=== PATIENT | female | born 1940 | race Caucasian/White ===

== ENCOUNTER 2016-12-16 10:02 | Day surgery (SDC) | payer BC ==
[2016-12-06 10:15] VITALS: BMI 22.9
--- NOTE | 2016-12-16 08:03 | HP ---
History & Physical Update - History History: No Change - Physical Physical: No Change - Assessment Assessment: No Change - Plan Plan: No Change
[~2016-12-16 10:02] MED LIST: CEFAZOLIN 1 GM in DEXTROSE 5%-WATER - 100 ML IVPB ONE; GABAPENTIN 300 MG CAPSULE (FP) PO ONE; oxyCODONE HCL 10 MG SUSTAINED ACTING TABLET PO STA
[2016-12-16] MEDS ORDERED: ROCURONIUM BROMIDE 50 MG/5 ML VIAL ONE (10:13)
[2016-12-16] MEDS ORDERED: PROPOFOL 20 ML ONE (10:13)
[2016-12-16] MEDS ORDERED: MIDAZOLAM HCL 2 MG/2 ML SINGLE DOSE VIAL ONE (10:13)
[2016-12-16] MEDS ORDERED: GUM MASTIC/STORAX/MSAL/ALCOHOL 1 DRP DROPSBTL MC ONE (11:26)
[2016-12-16] MEDS ORDERED: methylPREDNISolone ACET (DEPO) 40 MG/1 ML VIAL ONE (11:26)
[2016-12-16] MEDS ORDERED: LIDOCAINE 1%/EPI 1:100000 (20 ML MULTI DOSE VIAL) ONE ×2 (11:26→11:47)
[2016-12-16] MEDS ORDERED: BUPIVACAINE HCL/PF 2.5 MG/ML - 30 ML VIAL IJ ONE (11:26)
[2016-12-16] MEDS ORDERED: ePHEDrine SULFATE 50 MG/1 ML AMPULE ONE (12:01)
[2016-12-16] MEDS ORDERED: LIDOCAINE 1%/EPI 1:100000 (50 ML MULTI DOSE VIAL) INF ONE (12:20)
[2016-12-16] MEDS ORDERED: oxyCODONE HCL 5 MG TABLET PO PRN ×3 (14:21→14:27)
[2016-12-16] MEDS ORDERED: ONDANSETRON 4 MG/2 ML VIAL IVPUSH PRN ×2 (14:21→15:32)
--- NOTE | 2016-12-16 14:23 | OP ---
Operative Note - Note: Operative Date: 12/16/16 Pre-Operative Diagnosis: Spinal stenosis with radiculopathy Operation: Spinal cord stimulator insertion T7-T9 Post-Operative Diagnosis: Same as Pre-op Surgeon: Sanchez Fritz Traffic Court Magistrate: Tyrese Negrete Anesthesiologist/TOY ASSEMBLER WOOD: Armando Hong Anesthesia: General Estimated Blood Loss (mls): 15 Fluid Volume Replaced (mls): 900 Operative Report Dictated: Yes
--- NOTE | 2016-12-16 14:24 | SURG ---
Surgery Wood Ski Maker Note Wood Ski Maker: Tyrese Negrete PA-C Date of Service: 12/16/16 Diagnosis: Spinal stenosis with radiculopathy Procedure: Spinal cord stimulator implant T7-T9 I was present for the entirety of the operative procedure. For further detail, please refer to operative report. Visit type - Case Type Case Type: Scheduled Admission - New patient This patient is new to me today: Yes Date on this admission: 12/16/16
[2016-12-16] MEDS ORDERED: morphine CARPU-JECT 4 MG/1 ML DISP.SYRIN IVPUSH PRN (14:27)
[2016-12-16] MEDS ORDERED: KETOROLAC TROMETHAMINE 30 MG/1 ML VIAL IVPUSH PRN (14:27)
[2016-12-16] MEDS ORDERED: ONDANSETRON 4 MG/2 ML VIAL IVPB PRN (14:27)
[2016-12-16] MEDS ORDERED: CYCLOBENZAPRINE HCL 10 MG TABLET (FP) PO PRN (14:27)
[2016-12-16] MEDS ORDERED: LACTATED RINGERS SOLUTION 1,000 ML IV SCH ×2 (14:30)
[2016-12-16] MEDS ORDERED: fentaNYL 12mcg/hr PATCH.TD72 TD SCH (14:30)
[2016-12-16] MEDS ORDERED: ONDANSETRON 4 MG/2 ML VIAL ONE (14:31)
[2016-12-16] MEDS: ACETAMINOPHEN 1000 MG/100 ML VIAL (NON FORMULARY) IVPB SCH ×2 (15:15→21:18)
[2016-12-16] MEDS: traMADol HCL 50 MG TABLET PO SCH ×2 (15:20→23:37)
[2016-12-16] MEDS ORDERED: traMADol HCL 50 MG TABLET ONE (15:22)
[2016-12-16] MEDS ORDERED: ACETAMINOPHEN INJECTION 100 ML IVPB ONE (15:22)
[2016-12-16] MEDS: CEFAZOLIN (PRE-DOCKED) 50 ML IVPB SCH (17:49)
[2016-12-16] MEDS: GABAPENTIN 400 MG CAPSULE (FP) PO SCH (21:18)
[2016-12-17] MEDS: PREGABALIN 50 MG CAPSULE PO SCH ×2 (00:37→09:58)
[2016-12-17] MEDS: CEFAZOLIN (PRE-DOCKED) 50 ML IVPB SCH (01:15)
[2016-12-17] MEDS: ACETAMINOPHEN 1000 MG/100 ML VIAL (NON FORMULARY) IVPB SCH ×3 (04:00→09:55)
[2016-12-17] MEDS: traMADol HCL 50 MG TABLET PO SCH ×2 (06:08→07:20)
--- NOTE | 2016-12-17 07:22 | DS ---
Physical Exam: SUBJECTIVE: POD #1 s/p spinal cord stimulator implant T7/9. Patient seen and examined. C/o incisional tenderness. Pain controlled well via narcotic and non- narcotic meds PRN. She has gotten OOB and ambulated hallways unassisted. Denies n/v/f/c, CP, SOB, muscle weakness or tingling in her extremities. OBJECTIVE: Last Vital Signs Temp Pulse Resp BP Pulse Ox 98.6 F 59 L 18 86/50 96 12/17/16 05:00 12/17/16 05:00 12/17/16 05:00 12/17/16 05:00 12/17/16 05:02 PHYSICAL EXAM GENERAL: The patient is awake, alert, and fully oriented, in no acute distress. HEAD: Normal with no signs of trauma. EYES: PERRL, extraocular movements intact, sclera anicteric, conjunctiva clear. ENT: Ears normal, nares patent, oropharynx clear without exudates, moist mucous membranes. NECK: Trachea midline, full range of motion, supple. LUNGS: CTA bilat anteriorly HEART: RRR ABDOMEN: Soft, nontender, nondistended, normoactive bowel sounds, no guarding, no rebound, no hepatosplenomegaly, no masses. EXTREMITIES: 2+ pulses, warm, well-perfused, no edema. NEUROLOGICAL: CN II - XII grossly intact. Normal speech, gait not observed. PSYCH: Normal mood, normal affect. SKIN: Midline thoracic incision intact. No hematoma or erythema. Right low back transverse incision intact. No hematoma or erythema. HOSPITAL COURSE: Date of Admission:12/16/16 Date of Discharge: 12/17/16 The patient was admitted to the Med-Surg Unit with spinal stenosis and associated radicular pain. Now, POD #1 s/p spinal cord stimulator implant T7/9. The day of surgery, the patient ambulated the hallways with assistance. Narcotic and non-narcotic pain management control was achieved with an oral and IV approach. POD #1, the surgical drain was removed fully intact and without incident. An xray was obtained and confirmed hardware placement at (level of ), no fractures or dislocations. Kelly-operative IV ABX were administered. DVT prophylaxis was achieved with SCDs and early ambulation. The patient ambulated with Physical Therapy and no services were recommended upon discharge. Narcotic scripts and or muscle relaxants were checked with TNS RATOPRINTER prior to escibe. The discharge instructions and an oral pain management plan were reviewed with the patient. Patient going to be followed also by [employer] for stimulator interrogation/adjustments as needed. Patient is on Fentanyl patch, Lyrica and Gabapentin as per Dr. Matheus Varela and has refused any other oral pain meds as this regimen works best for her. All questions answered. Above plan discussed with Dr. Fritz and agreed. Minutes to complete discharge: 25 <Tyrese Negrete P - Last Filed: 12/17/16 07:41> Physical Exam: SUBJECTIVE: Patient seen and examined OBJECTIVE: Vital Signs Temperature 98.3 F 12/17/16 10:00 Pulse Rate 61 12/17/16 10:00 Respiratory Rate 18 12/17/16 10:00 Blood Pressure 119/60 12/17/16 10:00 O2 Sat by Pulse Oximetry (%) 96 12/17/16 05:02 PHYSICAL EXAM GENERAL: The patient is awake, alert, and fully oriented, in no acute distress. HEAD: Normal with no signs of trauma. EYES: PERRL, extraocular movements intact, sclera anicteric, conjunctiva clear. ENT: Ears normal, nares patent, oropharynx clear without exudates, moist mucous membranes. NECK: Trachea midline, full range of motion, supple. LUNGS: Breath sounds equal, clear to auscultation bilaterally, no wheezes, no crackles, no accessory muscle use. HEART: Regular rate and rhythm, S1, S2 without murmur, rub or gallop. ABDOMEN: Soft, nontender, nondistended, normoactive bowel sounds, no guarding, no rebound, no hepatosplenomegaly, no masses. EXTREMITIES: 2+ pulses, warm, well-perfused, no edema. NEUROLOGICAL: Cranial nerves II through XII grossly intact. Normal speech, gait not observed. PSYCH: Normal mood, normal affect. SKIN: Warm, dry, normal turgor, no rashes or lesions noted. LABS CBC,CMP WBC 5.3 K/mm3 (4.0-10.8) 12/17/16 07:59 RBC 3.72 M/mm3 (3.60-5.2) 12/17/16 07:59 Hgb 11.9 GM/dl (10.7-15.3) 12/17/16 07:59 Hct 35.6 % (32.4-45.2) 12/17/16 07:59 MCV 95.7 fl (80-96) 12/17/16 07:59 MCH 32.0 pg (25.7-33.7) 12/17/16 07:59 MCHC 33.5 g/dl (32.0-36.0) 12/17/16 07:59 RDW 12.7 % (11.6-15.6) 12/17/16 07:59 Plt Count 166 K/MM3 (134-434) 12/17/16 07:59 MPV 8.0 fl (7.5-11.1) 12/17/16 07:59 Sodium 138 mmol/L (136-145) 12/17/16 07:59 Potassium 4.1 mmol/L (3.5-5.1) 12/17/16 07:59 Chloride 104 mmol/L (98-107) 12/17/16 07:59 Carbon Dioxide 30 mmol/L (22-28) H 12/17/16 07:59 Anion Gap 4 (8-16) L 12/17/16 07:59 BUN 14 mg/dl (7-18) 12/17/16 07:59 Creatinine 0.9 mg/dl (0.6-1.3) 12/17/16 07:59 Random Glucose 98 mg/dl (74-106) 12/17/16 07:59 Calcium 8.7 mg/dl (8.4-10.2) 12/17/16 07:59 HOSPITAL COURSE: Date of Admission:12/16/16 Date of Discharge: 12/17/16 The patient was admitted to the Med-Surg Unit after insertion of a spinal cord stimulator. The day of surgery, the patient ambulated the hallways with assistance. Narcotic and non-narcotic pain management control was achieved with an oral and IV approach. An xray was obtained and confirmed hardware placement . Kelly-operative IV ABX were administered. DVT prophylaxis was achieved with SCDs and early ambulation. The patient ambulated with Physical Therapy and no services were recommended upon discharge. Narcotic scripts and or muscle relaxants were checked with TNS RATOPRINTER prior to escibe. The discharge instructions and an oral pain management plan were reviewed with the patient. All questions answered. Above plan discussed with Dr. Fritz and agreed. Patient seen and examined Agree with Above D/C Planning <Sanchez Fritz - Last Filed: 12/17/16 15:49> Visit type - Case Type Case Type: Scheduled Admission - New patient This patient is new to me today: Yes Date on this admission: 12/17/16 <Tyrese Negrete - Last Filed: 12/17/16 07:41>
[2016-12-17 08:28] LABS: MCHC 33.5 g/dl (32.0-36.0); MEAN CELL VOLUME 95.7 fl (80-96); PLATELET COUNT 166 K/MM3 (134-434); RDW 12.7 % (11.6-15.6); WHITE BLOOD COUNT 5.3 K/mm3 (4.0-10.8)
[2016-12-17 08:29] LABS: ANION GAP 4 (8-16); CALCIUM 8.7 mg/dl (8.4-10.2); CO2 30 mmol/L (22-28); CREATININE 0.9 mg/dl (0.6-1.3); GLUCOSE,RANDOM 98 mg/dl (74-106)
[2016-12-17] MEDS ORDERED: FENTANYL PATCH WASTE TD PRN (08:32)
[2016-12-17] MEDS: GABAPENTIN 400 MG CAPSULE (FP) PO SCH (09:56)
[2016-12-17] MEDS ORDERED: CHOLECALCIFEROL (VITAMIN D3) 1,000 UNIT TABLET (FP) PO SCH (10:00)
[2016-12-17] MEDS ORDERED: PATIENT'S OWN MEDICATION (NON-FORMULARY) (Ubidecarenone [Coq-10] 200 MG) PO SCH (10:00)
--- NOTE | 2016-12-17 12:18 | OP ---
DATE OF OPERATION: 12/16/2016 PREOPERATIVE DIAGNOSIS: Chronic back pain. POSTOPERATIVE DIAGNOSIS: Chronic back pain. PROCEDURE PERFORMED: 1. Insertion of spinal cord stimulator. 2. Placement of leads. 3. Laminectomy. 4. Insertion of spinal cord cemented paddles. SURGEON: Sanchez Fritz MD CUTTER OPERATOR: JAUN Mckeon ESTIMATED BLOOD LOSS: 50 mL INTRAVENOUS FLUIDS: Per Anesthesia. ANESTHESIA: General. COMPLICATIONS: None. DISPOSITION: Patient was brought to PACU in stable condition. INDICATIONS FOR SURGERY: The patient is a 76-year-old female who has been suffering from pain in her back for many years. She has gone through an exhaustive course of treatment for this, which included medications, physical therapy as well as injections. Unfortunately, her pain continued to persist despite all this. At this point, risks, benefits, and alternatives were discussed, and the patient consented to surgery. DESCRIPTION OF PROCEDURE: Patient was brought to the operating room by the Anesthesia staff. After appropriate patient identification was performed, general anesthesia was given. She was placed prone onto the Daljit frame with all areas of bony prominences well padded. At this time, a C-arm was brought in, and the T9 level was marked off. Her previous trial was performed at T7-8. Her back was prepped and draped in a sterile manner. At this point, timeout was completed. An incision was made over the T9-10 level. Dissection was carried down to the fascia, and the fascia was split, and appropriate retractors were then placed in. The C-arm was brought in. The T9-10 level was confirmed. A laminectomy was performed at T9-10. Adequate room was made for paddles. A paddle was inserted, and it was sewed down. Next, the impedance was measured and appeared okay. Next, a pocket was made for the battery. Wires were tunneled into the battery, and the battery was connected to the wires and placed in. X-rays confirmed adequate placement of all the instrumentation. All bleeding was well controlled at this time. The fascia was closed with a No. 1 Vicryl suture. The subcutaneous tissues were closed with 2-0 Vicryl suture. The skin was closed with 3-0 Monocryl suture on both incisions. Dermabond was applied. Steri-Strips were applied. A sterile dressing was applied. The patient was placed supine on the OR bed, extubated in the OR, and brought to the PACU in stable condition. David COX/[id number] MTDD
[2016-12-17 12:59] VITALS: BP 119/60; PULSE 61; TEMP 98.3
== END 2016-12-17 12:50 | disposition home or self-care (01) ==
LOC: FASU 10:02 → FM/S 16:38 → FASU 12-17 12:50
PROVIDERS: ATTEND Orthopaedic Surgery Orthopaedic Surgery of the Spine
PROC: [UNRECOGNIZED PROCEDURE] (2016-12-16)
PROC: 0JH70BZ Insertion of Single Array Stimulator Generator into Back Subcutaneous Tissue and Fascia, Open Approach (ICD-10-PCS; principal; 2016-12-16 11:45)
DX: M54.16 Radiculopathy, lumbar region (principal)
CPT/HCPCS: 63655; 63685; C1767; 36415; 72070-TC; 72100-TC; 76001-TC; 80048; 85027; 94760; 97116-GP; 97161-GP